=== PATIENT | male | born 1995 | race Caucasian/White ===

== ENCOUNTER 2018-12-06 18:23 | Emergency (ER) | payer OTHER, MEDICAID ==
[2018-12-06] MEDS: IBUPROFEN 600 MG TAB PO (20:58)
[2018-12-06] MEDS: LIDOCAINE 2%/EPI MPF (SDV) 20 ML VIAL INJ (21:10)
[2018-12-06] MEDS: STERILE WATER 1L IRRIG BTL IRR (21:28)
== END 2018-12-06 21:34 | disposition home or self-care (01) ==
LOC: FTE 18:23
DX: S61.412A Laceration without foreign body of left hand, initial encounter (principal); W26.0XXA Contact with knife, initial encounter; Y92.9 Unspecified place or not applicable
CPT/HCPCS: 12002; 99283-25

== ENCOUNTER 2018-12-26 10:43 | Emergency (ER) | payer OTHER | END 2018-12-26 12:24 | disposition home or self-care (01) | LOC: E/R 10:43 | DX: Z48.02 Encounter for removal of sutures (principal) | CPT/HCPCS: 99281; Z7502 ==